=== PATIENT | female | born 1995 | race Caucasian/White ===

== ENCOUNTER → 2018-01-25 | Emergency (ER) | payer OTHER ==
[~2018-01-25] VITALS: Ht 167.6 cm; Wt 117.9 kg
[~2018-01-25] MED LIST: CAMBIA50 MG; CIPROFLOXA500 MG/5 M; FLOVENT 110MCG7.9 GM IH; GILTUSS COUGH-118 ML PO; KETO10TA2 PO; NEURONTIN300 MG PO; OSEL75CA PO; PEPCID40 MG PO; PREDNISONE5 M1; PROVENTIL3 ML/2.5 M IH; SINGULAIR 10MG10 MG PO; TERCONAZOLE80 MG VAG; VALACYCLOVIR1000 MG PO; ZOFRAN8 MG PO
== END | disposition home or self-care (01) ==
LOC: ER 23:29
DX: N61.1 Abscess of the breast and nipple (principal); T36.8X5A Adverse effect of other systemic antibiotics, initial encounter; Y92.89 Other specified places as the place of occurrence of the external cause; B95.61 Methicillin susceptible Staphylococcus aureus infection as the cause of diseases classified elsewhere

== ENCOUNTER 2018-05-21 19:20 | Emergency (ER) | payer OTHER ==
[~2018-05-21] VITALS: Ht 165.1 cm; Wt 117.9 kg
== END 2018-05-21 21:33 | disposition home or self-care (01) ==
LOC: ER 19:20
DX: J11.1 Influenza due to unidentified influenza virus with other respiratory manifestations (principal)